=== PATIENT | female | born 1955 | race Caucasian/White ===

== ENCOUNTER 2019-10-20 07:20 | Outpatient (CLI) | payer MEDICARE, OTHER | END 2019-10-20 07:21 | disposition home or self-care (01) | LOC: DI.S 07:20 | PROVIDERS: ATTEND Family Medicine | DX: Z53.9 Procedure and treatment not carried out, unspecified reason (principal) ==

== ENCOUNTER 2019-11-15 10:06 | Outpatient (CLI) | payer MEDICARE, OTHER ==
--- NOTE | 2019-11-15 12:09 | CT Report ---
Reason: CHRONIC SINUSITIS Procedure Date: 11/15/2019 Accession Number: [id number] / [id number] Procedure: CT - Sinuses CPT Code: Final Report FULL RESULT: EXAM: CT SINUS EXAM DATE: 11/15/2019 10:55 AM. HISTORY: CHRONIC SINUSITIS. COMPARISONS: None. TECHNIQUE: Routine multi-axial CT imaging performed through the sinuses. Iodinated IV contrast: None. Reconstructions: Multiplanar reformats. In accordance with CT protocol optimization, one or more of the following dose reduction techniques were utilized for this exam: automated exposure control, adjustment of mA and/or KV based on patient size, or use of iterative reconstructive technique. FINDINGS: RIGHT Frontal: Normal. Ethmoid: Normal. Maxillary: Mild mucosal thickening. Sphenoid: Normal. Drainage Pathways: Widely patent antral window. LEFT Frontal: Hypoplastic. Ethmoid: Normal. Maxillary: Normal. Sphenoid: Normal. Drainage Pathways: Widely patent antral window. Nasal Cavity: Normal. No mass or significant anatomic abnormality evident. Osseous Structures: Unremarkable. Orbits: Unremarkable. Other: None. IMPRESSION: No evidence of acute sinus disease. Mild right maxillary sinus mucosal thickening. RADIA
== END 2019-11-15 10:07 | disposition home or self-care (01) ==
LOC: DI 10:06
PROVIDERS: ATTEND Otolaryngology
DX: J32.8 Other chronic sinusitis (principal)
CPT/HCPCS: 70486

== ENCOUNTER 2019-11-28 14:24 | Outpatient (CLI) | payer MEDICARE, OTHER ==
[2019-11-28] MEDS ORDERED: GADOBUTROL 10 MMOL/10 ML VIAL ONE (16:12)
[2019-11-28] MEDS ORDERED: GADOBUTROL 10 MMOL/10 ML VIAL IVP ONE (16:40)
--- NOTE | 2019-11-28 18:26 | MRI Report ---
Reason: HEARING LOSS Procedure Date: 11/28/2019 Accession Number: [id number] / [id number] Procedure: MRI - IACS W/WO CPT Code: Final Report FULL RESULT: MRI BRAIN AND INTERNAL AUDITORY CANALS WITHOUT AND WITH CONTRAST INDICATION: 64-year-old female. Hearing loss. Facial numbness right side of face. TECHNIQUE: Imaging of the brain and internal auditory canals has been performed. The following sequences were obtained. BRAIN 1. T1 sagittal. 2. Axial T1 MP RAGE, FLAIR, T2*GRE and DWI. 3. 10 cc IV Gadavist. Postcontrast and T1 3D MP rage axial sequence. INTERNAL AUDITORY CANALS 1. High resolution, balanced FFE axial sequence. 2. Thin slice coronal fat saturated T2. 3. Postcontrast, thin slice, T1 fat saturated axial sequence. COMPARISON: None. FINDINGS: INTERNAL AUDITORY CANALS On the balanced FFE axial sequence the vestibulocochlear nerve bundles are well seen and the CP angle cisterns and internal auditory canals bilaterally. No focal mass lesion is demonstrated. Normal fluid-filled spaces are seen in the distribution of the cochlea, vestibules and semicircular canals bilaterally. There is no obvious dehiscence of the right superior semicircular canal. However, the possibility of dehiscence of the left superior semicircular canal cannot be excluded. There is no abnormal enlargement of either endolymphatic duct or sac. No enhancing CP angle or internal auditory canal mass lesion is demonstrated. In addition, no abnormal enhancement is seen in either labyrinth. A small vascular structure appears to contact the cisternal segment of the right trigeminal nerve in the right CP angle cistern. This probably represents a branch of the right superior cerebellar artery. There is no abnormal enhancement of the cisternal segment of either trigeminal nerve. In addition, there is no evidence of an enhancing mass lesion in either Meckel's cave. There is symmetric enhancement of the cavernous sinuses without obvious mass lesion in the right cavernous sinus. The peripheral branches of the right trigeminal nerve are not well assessed on the sequences provided, however, there is no obvious abnormal thickening or enhancement of the V1, V2 or V3 divisions of the right trigeminal nerve. No evidence of denervation atrophy in the distribution of the muscles of mastication. BRAIN Ventricular size is normal. A few punctate T2 hyperintensities are seen in the deep white matter of the left frontal lobe. The signal intensity of the cortex and white matter is otherwise normal. In particular, no brain stem or cerebellar lesion is demonstrated. Grossly there appear to be flow voids for the main intracranial arteries. No abnormal diffusion restriction is demonstrated. There is no evidence of acute or chronic hemorrhage on the T2*GRE sequence. No enhancing space occupying mass lesion is demonstrated. No pathologic meningeal or cranial nerve enhancement is identified. There appears to be normal intravascular contrast enhancement in the dural venous sinuses and deep venous structures. Very limited assessment of the orbits reveals no gross pathology. The paranasal sinuses are essentially clear. No significant mastoid or middle ear effusion is demonstrated. IMPRESSION: 1. 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 This could be further evaluated with temporal bone CT, as clinically warranted. 2. Otherwise unremarkable MRI examination of the internal auditory canals. In particular there is no evidence of a vestibular schwannoma. 3. A few punctate T2 hyperintense foci are demonstrated in the white matter as described. The etiology is uncertain. This most likely represents some minor chronic microangiopathy. The clinical significance is doubtful. 4. Imaging of the brain is otherwise unremarkable.
== END 2019-11-28 14:25 | disposition home or self-care (01) ==
LOC: DI 14:24
PROVIDERS: ATTEND Otolaryngology
DX: H90.11 Conductive hearing loss, unilateral, right ear, with unrestricted hearing on the contralateral side (principal)
CPT/HCPCS: 70543; A9585

== ENCOUNTER 2021-10-20 07:28 | Emergency (ER) | payer MEDICARE, OTHER ==
[2021-10-20 07:38] VITALS: BP 126/69
--- NOTE | 2021-10-20 07:46 | ED Physician Documentation ---
PD HPI Fall - Stated complaint Stated Complaint: LT ANKLE/RT HAND PX - Chief complaint Chief Complaint: Trauma Ext - History obtained from History obtained from: Patient - History of Present Illness Mechanism of injury: Slipped ([place] 2 weeks ago, and rain/sleet developed and patient slipped on rock hiking downhill. Ankle twisted and she fell to right wrist. Persistent pains. Did get abrasions on lower legs and arm. Has lac on dorsum of ulnar side hand. No redness currently. Had some redness few days.) Fall distance: Standing position (hiking down mountain) Timing - onset: How many weeks ago (2) Injury(ies) location: Other (diffuse extremity abrasions have healed per patient. Persistent left ankle pain with walking and right wrist pain with ROM.). No: Head, Chest, Abdomen Associated symptoms: Paresthesias (some numbness little/ring/middle fingers has persisted with slow improvement.). No: LOC, AMS, Weakness Worsens with: Movement, Palpation Similar symptoms before: Has not had sx before Review of Systems Constitutional: denies: Fever, Chills Nose: denies: Rhinorrhea / runny nose, Congestion Throat: denies: Sore throat Cardiac: denies: Chest pain / pressure Respiratory: denies: Dyspnea, Cough GI: denies: Abdominal Pain Skin: reports: Laceration (s) (dorsum right hand over ulnar side pisiform area) Musculoskeletal: reports: Joint pain (right wrist and left ankle.) Neurologic: reports: Numbness (little/ring/middle fingers since the fall.). denies: Focal weakness PD PAST MEDICAL HISTORY - Past Medical History Cardiovascular: None Respiratory: None Endocrine/Autoimmune: None - Present Medications Home Medications: Ambulatory Orders Medication Instructions Recorded Confirmed No Known Home Medications 10/20/21 10/20/21 - Allergies Allergies/Adverse Reactions: Allergies Allergy/AdvReac Type Severity Reaction Status Date / Time No Known Drug Allergies Allergy Verified 10/20/21 07:33 PD ED PE NORMAL - Vitals Vital signs reviewed: Yes - General General: Alert and oriented X 3, No acute distress, Well developed/nourished - Derm Derm: Normal color, Warm and dry - Extremities Extremities: Other (tender at distal ulnar area. Not tender in snuffbox. Laceration over dorsal hand without signs of infection. Edges are open slightly. No visible FB. Tender so patient not wanting exploration. left ankle tender anterolaterally. No laxity with stress testing but hurts inversion. ) - Neuro Neuro: Alert and oriented X 3, No motor deficit, Normal speech, Other (decreased sensation in ulnar nerve area of fingers. Normal sensation above wrist. Presume relates to hand injury. ) Results - Vitals Vitals: Oxygen O2 Source Room air - Rads (name of study) left ankle Radiology: Prelim report reviewed, See rad report (no fractures) right wrist Radiology: Prelim report reviewed (no fractures. small punctate densities seen under the skin over pisiform area c/w FBs likely. ), See rad report PD MEDICAL DECISION MAKING - ED course Complexity details: reviewed results (no fractures. She has ankle brace and wrist splint she had gotten at store already. Discussed the likely small sand/dirt debris on xray. No current infection and it is small, likely inert. She would prefer to "let it work out the open wound" with continued soaks and ointment.), considered differential, d/w patient ED course: She declined local anesth and debridement of the apparent sand/rock specks under the skin. The size of it is not likely causing problems and no signs of infection, so this is reasonable choice for her. Departure - Departure Disposition: 01 Home, Self Care Clinical Impression: Accidental fall Qualifiers: Encounter type: initial encounter Qualified Code(s): W19.XXXA - Unspecified fall, initial encounter Right wrist sprain Qualifiers: Encounter type: initial encounter Qualified Code(s): S63.501A - Unspecified sprain of right wrist, initial encounter Hand laceration Qualifiers: Encounter type: initial encounter Foreign body presence: with foreign body Laterality: right Qualified Code(s): S61.421A - Laceration with foreign body of right hand, initial encounter Left ankle sprain Qualifiers: Encounter type: initial encounter Involved ligament of ankle: unspecified ligament Qualified Code(s): S93.402A - Sprain of unspecified ligament of left ankle, initial encounter Condition: Stable Record reviewed to determine appropriate education?: Yes Instructions: ED Sprain Wrist Follow-Up: Bob Chavez MD [Primary Care Provider] - Comments: Your ankle x-rays without any fractures. Continue with the ankle brace and activity as tolerated. Consider some anti-inflammatory such as ibuprofen or naproxen 2-3 times daily over the next several days to week. Your wrist x-ray does not show any fractures. There are small punctate densities just under the skin in the area of the laceration consistent with some likely small grains of sand or rock. As discussed you can continue with the soaking and ointment to the area and see if the debris works its way out. As long as does not seem to cause infection, then it is okay for her to try to work that way. Continue the wrist brace and wound care for the wrist. You could anticipate another week or 2 of healing as injuries like this can often take 3 or 4 weeks. Discharge Date/Time: 10/20/21 09:20
--- NOTE | 2021-10-20 08:38 | XRAY Report ---
PROCEDURE: Wrist 3 View RT INDICATIONS: Persistent pain status post fall 2 weeks prior. TECHNIQUE: 3 views of the wrist were acquired. COMPARISON: None. FINDINGS: Bones: No fractures or dislocations. No suspicious bony lesions. Soft tissues: There are a few punctate clustered densities within the dorsal ulnar soft tissues at th e level of the carpal bones. IMPRESSION: 1. No fracture or dislocation. 2. Clustered punctate densities within the dorsal ulnar soft tissues are nonspecific and may reflect possible dystrophic calcifications or superficial foreign bodies. Reviewed by: Jacob Morales MD on 10/20/2021 8:37 AM PST Approved by: Jacob Morales MD on 10/20/2021 8:37 AM PST Station ID: [id number]
--- NOTE | 2021-10-20 08:41 | XRAY Report ---
PROCEDURE: Ankle 3 View LT INDICATIONS: Persistent pain status post fall 2 weeks prior. TECHNIQUE: 3 views of the ankle were acquired. COMPARISON: None. FINDINGS: Bones: No fractures or dislocations. Ankle mortise is normally aligned. No suspicious bony lesions . Soft tissues: No tibiotalar joint effusion. Achilles tendon appears intact. IMPRESSION: 1. No fracture or dislocation. Reviewed by: Jacob Morales MD on 10/20/2021 8:39 AM [facility] Approved by: Jacob Morales MD on 10/20/2021 8:39 AM [facility] Station ID: [id number]
== END 2021-10-20 09:20 | disposition home or self-care (01) ==
LOC: ED 07:28
DX: S93.402A Sprain of unspecified ligament of left ankle, initial encounter (principal); S63.501A Unspecified sprain of right wrist, initial encounter; S61.421A Laceration with foreign body of right hand, initial encounter; W01.0XXA Fall on same level from slipping, tripping and stumbling without subsequent striking against object, initial encounter; Y93.01 Activity, walking, marching and hiking; Y92.828 Other wilderness area as the place of occurrence of the external cause
CPT/HCPCS: 99282; 99284

== ENCOUNTER 2022-07-06 09:53 | Outpatient (CLI) | payer MEDICARE, OTHER ==
--- NOTE | 2022-07-15 10:30 | Mammography Report ---
BILATERAL DIGITAL SCREENING MAMMOGRAM 3D/2D WITH EXAGGERATED CC: 07/06/2022 CLINICAL: Routine screening. Family history of breast cancer. Comparison is made to exams dated: 06/26/2021 mammogram and 11/02/2019 mammogram - [facility] [place]. Both breasts are heterogeneously dense, which may obscure small masses (category c / 51-75% glandula r tissue). No significant masses, calcifications, or other findings are seen in either breast. There has been no significant interval change. IMPRESSION: NEGATIVE There is no mammographic evidence of malignancy. A 1 year screening mammogram is recommended. Based on the Tyrer Cuzick model (a risk assessment model) the patients lifetime risk is 12.0% and he r 10 year risk is 6.7%. According to the ACR, ACS, and NCCN guidelines, an annual breast MRI exam raul ng with mammogram is recommended if the patients lifetime risk is 20% or greater. This exam was interpreted at Station ID: [id number]. NOTE: For mammograms, a report in lay terms will be sent to the patient. Approximately 15% of breast malignancies will not be visualized mammographically. In the management of a palpable breast mass, a negative mammogram must not discourage biopsy of a clinically suspicious lesion. Electronically Signed By: Roberto [email or web address]/[email or web address]:07/14/2022 14:16:17 ACR BI-RADS Category 1: Negative 3341F PARENCHYMAL PATTERN: (D) - The breast(s) demonstrate(s) heterogeneously dense fibroglandular jovi monroe. BI-RADS CATEGORY: (1) - 1 RECOMMENDATION: (ANNUAL) - Recommend routine annual screening mammography. [id number] 1 year screening LATERALITY: (B)
== END 2022-07-06 09:54 | disposition home or self-care (01) ==
LOC: DI.S 09:53
DX: Z12.31 Encounter for screening mammogram for malignant neoplasm of breast (principal); Z80.3 Family history of malignant neoplasm of breast

== ENCOUNTER 2023-06-21 14:09 | Outpatient (CLI) | payer MEDICARE, OTHER ==
--- NOTE | 2023-06-21 22:23 | DEXA Report ---
PROCEDURE: Dexa Spine and/or Hip INDICATIONS: POST MENOPAUSAL TECHNIQUE: Dual energy x-ray absorptiometry (DXA) was performed on a Flowboard System. Regions measur ed are the AP Spine, femoral neck, and if needed forearm. COMPARISON: None. FINDINGS: Lumbar Spine: Bone Mineral Density 1.012 g/cm/cm,T score -1.4. Osteopenia Left Femoral Neck: Bone Mineral Density 0.940 g/cm/cm, T score -0.7. Normal Left Hip: Bone Mineral Density 0.870 g/cm/cm,T score -1.1. Osteopenia (T score greater or equal to -1.0: NORMAL) (T score from -1.1 to -2.4: OSTEOPENIA) (T score less than or equal to -2.5 to: OSTEOPOROSIS) Impression: By WHO criteria, this patient has low bone density (osteopenia). Patients with diagnosis of osteoporosis or osteopenia should have regular bone mineral density assess ment. For those eligible for Medicare, routine testing is allowed once every 2 years. Testing frequ ency can be increased for patients who have rapidly progressing disease or for those who are receivin g medical therapy to restore bone mass. Reviewed by: Kelvin Littlejohn MD on 06/21/2023 10:21 PM PDT Approved by: Kelvin Littlejohn MD on 06/21/2023 10:21 PM PDT Station ID: [id number]
== END 2023-06-21 14:10 | disposition home or self-care (01) ==
LOC: DI 14:09
PROVIDERS: ATTEND Registered Nurse
DX: Z78.0 Asymptomatic menopausal state (principal); M85.89 Other specified disorders of bone density and structure, multiple sites